=== PATIENT | female | born 1985 | race Caucasian/White ===

== ENCOUNTER 2017-05-20 15:24 | Emergency (ER) | END 2017-05-20 18:16 | disposition home or self-care (01) ==

== ENCOUNTER 2017-11-07 11:11 | Emergency (ER) | END 2017-11-07 13:48 | disposition home or self-care (01) ==

== ENCOUNTER 2018-04-04 18:32 | Emergency (ER) | payer MEDICAID ==
[~2018-04-04] VITALS: Ht 152.4 cm; Wt 65.2 kg
[~2018-04-04 18:32] MED LIST: ACET500C5 PO; BACI28.34 TOP; CEPH-443 PO; PREN1TAB79 PO
[2018-04-04 19:11] VITALS: Ht 152.4 cm; Wt 65.2 kg
--- NOTE | 2018-04-04 22:25 | ERD ---
ER Documentation Chief Complaint Chief Complaint DYSURIA, "VAGINAL INFLAMMATION" HPI 32-year-old female, previously healthy, presents to the emergency department, complaining of 2 days with vaginal discharge, grayish, associated with discomfort and vulvar irritation. She denies burning with urination. No fever, no chills, no abdominal pain. ROS All systems reviewed and are negative except as per history of present illness. Medications Home Meds Active Scripts Fluconazole* (Diflucan*) 150 Mg Tablet, 150 MG PO ONCE, #1 TAB Prov:MARILEE LOREDO MD 04/04/18 Nystatin-Triamcinolone* (Nystatin-Triamcinolone* Cream) 15 Gm Cream.gm., 1 APPLIC TOP BID for 7 Days, TUB Prov:MARILEE LOREDO MD 04/04/18 Metronidazole* (Metrogel* Vaginal) 0.75% -70 Gram Gel.w.appl, 1 APPFUL VAG HS for 7 Days, TUB Prov:MARILEE LOREDO MD 04/04/18 Bacitracin* (Bacitracin Zinc Oint*) 28.35 Gm Oint, 1 APPLIC TOP TID for 7 Days, TUB APPLY TO Prov:MARILEE LOREDO MD 11/07/17 Cephalexin* (Keflex*) 500 Mg Capsule, 500 MG PO TID for 7 Days, CAP Prov:MARILEE LOREDO MD 11/07/17 Vit W-Ca,Fe,FA(<1 mg) ( Vitamins) 1 Each Tablet, 1 EACH PO DAILY, #30 TAB Prov:BRYN DOAN 05/20/17 Acetaminophen* (Tylophen*) 500 Mg Capsule, 1 CAP PO Q6H PRN for PAIN AND OR ELEVATED TEMP, #20 CAP Prov:PASILABRYN JAFFE F 05/20/17 Allergies Allergies: Coded Allergies: No Known Allergy (Unverified , 04/04/18) PMhx/Soc Medical and Surgical Hx: pt denies Medical Hx History of Surgery: Yes (csection) Anesthesia Reaction: No Hx Neurological Disorder: No Hx Respiratory Disorders: No Hx Cardiac Disorders: No Hx Psychiatric Problems: No Hx Miscellaneous Medical Probl: No Hx Alcohol Use: No Hx Substance Use: No Hx Tobacco Use: No Smoking Status: Never smoker Physical Exam Vitals Vital Signs Date Temp Pulse Resp B/P (MAP) Pulse Ox O2 O2 Flow FiO2 Time Delivery Rate 04/04/18 76 16 111/70 99 19:11 (84) Physical Exam Const: No acute distress Head: Atraumatic Eyes: Normal Conjunctiva ENT: Normal External Ears, Nose and Mouth. Neck: Full range of motion. No meningismus. Resp: Clear to auscultation bilaterally Cardio: Regular rate and rhythm, no murmurs Abd: Soft, non tender, non distended. Normal bowel sounds : Marked vulvar erythema, greenish vaginal discharge, no cervical motion tenderness, no adnexal masses palpated. Skin: No petechiae or rashes Back: No midline or flank tenderness Ext: No cyanosis, or edema Neur: Awake and alert Psych: Normal Mood and Affect Results 24 hrs Laboratory Tests Test 04/04/18 22:36 04/04/18 23:36 Urine Test NEGATIVE Bedside Urine pH (LAB) 7.0 Bedside Urine Protein (LAB) Negative Bedside Urine Glucose (UA) Negative Bedside Urine Ketones (LAB) Negative Bedside Urine Blood Negative Bedside Urine Nitrite (LAB) Negative Bedside Urine Leukocyte Esterase (L Trace Procedures/MDM Vital signs stable. Differential diagnosis considered include UTI, bacterial vaginosis, yeast infection, HSV, STI. Low suspicion for pelvic inflammatory disease. During the ED course the patient remained stable, no new complaints. Clinical impression discussed with the patient who agrees with management. The patient is stable to be treated outpatient and will be discharged home with a Rx for metronidazole gel, some side effects of prescribed medications (headache, rash, nausea, vomiting, diarrhea, drowsiness, interactions with other medications) were reviewed. Follow up with the primary care provider in the next 48h has been recommended. If symptoms persist, worsen or new symptoms develop, then patient should return to the ED immediately. Instructions explained and given directly by me to the patient with acknowledgment and demonstrated understanding. Disclaimer: Inadvertent spelling and grammatical errors are likely due to EHR/dictation software use and do not reflect on the overall quality of patient care. Also, please note that the electronic time recorded on this note does not necessarily reflect the actual time of the patient encounter. Departure Diagnosis: Primary Impression: Vaginitis Condition: Stable Additional Instructions: Muchas devendra por [facility] para diaz servicio. Esperamos que en diaz visita a la douglas de emergencia diaz problema medico haya sido solucionado y que se sienta mucho mejor. Para estar seguros que diaz mejoria sigue en proceso, le pedimos el favor de hacer cameron unique de seguimiento medico con diaz doctor primario en los proximos 2-4 herrmann. Lleve con usted estos documentos y las medicinas recetadas. Si yara sintomas empeoran, NO SE ESPERE, por favor regrese a douglas de emergencia INMEDIATAMENTE. En ruiz que usted no tenga un mdico de atencin primaria: Llame al mdico o clnica comunitaria de referencia que aparece abajo [place] las horas de consultorio para hacer cameron unique para que le vean. CLINICAS: [facility] [phone] [facility] [phone] [facility] [phone] [facility] [phone] [facility] [phone] [address] [facility]. [phone] MARILEE DE LA CRUZ MD Apr 04, 2018 22:25
[2018-04-04] MEDS ORDERED: METR70GE15 VAG (23:50)
[2018-04-04] MEDS ORDERED: FLUC150T PO (23:50)
[2018-04-04] MEDS ORDERED: NYST15CR36 TOP (23:50)
== END 2018-04-05 00:03 | disposition home or self-care (01) ==
LOC: FTE 18:32
DX: N76.0 Acute vaginitis (principal)
CPT/HCPCS: 81003; 84703; Z7502; 99283

== ENCOUNTER 2018-06-30 13:09 | Emergency (ER) | payer MEDICAID ==
[~2018-06-30] VITALS: Wt 64.0 kg
[~2018-06-30 13:09] MED LIST changes: +FLUC150T PO; +METR70GE15 VAG; +NYST15CR36 TOP
[2018-06-30 13:16] VITALS: BP 107/58; PULSE 59; RESP 18
[2018-06-30] MEDS ORDERED: KETOROLAC 60 MG INJ IM STA (14:50)
[2018-06-30] MEDS ORDERED: IBUP-1542 PO (15:07)
--- NOTE | 2018-06-30 15:13 | ERD ---
ER Documentation Chief Complaint Chief Complaint headache after arguement at work with boss, recent stressors at work HPI 32-year-old female patient with no significant past medical history presents ED complaining of a headache that started for 1 month, worse when she is stressed and states that earlier today she got into an argument, verbal with her boss. Describes her headache as a pressure sensation and rates it a 8 out of 10. States that she has a lot of stressors at work. Denies any fever, neck stiffness, abdominal pain, chest pain, shortness of breath, cough, rhinorrhea. Denies any head or neck injuries. Denies any photophobia, photophobia. ROS All systems reviewed and are negative except as per history of present illness. Medications Home Meds Active Scripts Ibuprofen* (Motrin*) 600 Mg Tab, 600 MG PO Q6, #30 TAB Prov:RAY PRASAD PA-C 06/30/18 Fluconazole* (Diflucan*) 150 Mg Tablet, 150 MG PO ONCE, #1 TAB Prov:MARILEE LOREDO MD 04/04/18 Nystatin-Triamcinolone* (Nystatin-Triamcinolone* Cream) 15 Gm Cream.gm., 1 APPLIC TOP BID for 7 Days, TUB Prov:MARILEE LOREDO MD 04/04/18 Metronidazole* (Metrogel* Vaginal) 0.75% -70 Gram Gel.w.appl, 1 APPFUL VAG HS for 7 Days, TUB Prov:MARILEE LOREDO MD 04/04/18 Bacitracin* (Bacitracin Zinc Oint*) 28.35 Gm Oint, 1 APPLIC TOP TID for 7 Days, TUB APPLY TO Prov:MARILEE LOREDO MD 11/07/17 Cephalexin* (Keflex*) 500 Mg Capsule, 500 MG PO TID for 7 Days, CAP Prov:MARILEE LOREDO MD 11/07/17 Vit W-Ca,Fe,FA(<1 mg) ( Vitamins) 1 Each Tablet, 1 EACH PO DAILY, #30 TAB Prov:PASILABANLONGAR F 05/20/17 Acetaminophen* (Tylophen*) 500 Mg Capsule, 1 CAP PO Q6H PRN for PAIN AND OR ELEVATED TEMP, #20 CAP Prov:PASILABAN,KLAR F 05/20/17 Allergies Allergies: Coded Allergies: No Known Allergy (Unverified , 04/04/18) PMhx/Soc History of Surgery: Yes (csection) Anesthesia Reaction: No Hx Neurological Disorder: No Hx Respiratory Disorders: No Hx Cardiac Disorders: No Hx Psychiatric Problems: No Hx Miscellaneous Medical Probl: No Hx Alcohol Use: No Hx Substance Use: No Hx Tobacco Use: No FmHx Family History: No diabetes, No coronary disease Physical Exam Vitals Vital Signs Date Temp Pulse Resp B/P (MAP) Pulse Ox O2 O2 Flow FiO2 Time Delivery Rate 06/30/18 98.1 59 18 107/58 98 13:16 (74) Physical Exam Const: [id number], well-nourished. In no acute distress. Head: Atraumatic, normocephalic. No hematoma. No doyle sign. Eyes: Normal Conjunctiva without injection. No purulent discharge. PERRLA. EOMI ENT: Normal external ear. Ear canal without erythema. Tympanic membrane pearly capps without effusion or bulging. Nasal canal clear with normal turbinates. Moist oropharynx without tonsillar exudates. Non-erythematous pharynx. Uvula midline. No drooling. No trismus. Neck: No cervical midline tenderness. Full range of motion. No meningismus. No cervical lymphadenopathy. No JVD. Resp: Clear to auscultation bilaterally. No wheezing, rhonchi, rales, or crackles. No accessory muscle use. No retractions. Cardio: Regular rate and rhythm. No murmurs, rubs or gallops. Abd: Soft, non tender, non distended. Normal bowel sounds. No palpable masses. No rebound tenderness. No guarding. Negative McBurney's Point. Negative Prieto's Sign. Skin: Normal skin turgor. No petechiae or rashes Back: No midline tenderness. No CVA tenderness. Ext: No cyanosis, or edema. Distal pulses intact bilaterally. Neur: Awake and alert. Normal gait. Normal coordination. Cranial Nerves II- VII intact. Normal finger to nose. Muscle strength 5/5. Sensation intact. Psych: Normal Mood and Affect Results 24 hrs Laboratory Tests Test 06/30/18 15:02 POC Beta HCG, Qualitative NEGATIVE Current Medications Medications Dose Sig/Arvind Start Time Status Last (Trade) Ordered Route PRN Stop Time Admin Dose Reason Admin Ketorolac 60 mg ONCE STAT 06/30/18 DC Tromethamine IM 14:50 (Toradol) 06/30/18 14:51 Procedures/MDM 32-year-old female patient with no significant hospital history presents ED complaint of a headache that started after feeling stressed. Patient is afebrile and nontoxic-appearing. Urine negative. Toradol 60 mg IM with improvement of his pain. Patient likely has a tension headache secondary to stress. Low suspicion for headache, migraine, intracranial bleed, subarachnoid hemorrhage, TIA, stroke, subdural hematoma, epidural hematoma, seizures, meningitis, carotid dissection or other emergent conditions. Diagnosis: Headache Discharge medications: Ibuprofen Follow up with primary care physician in 1-2 days. Instructed patient to return to the ED sooner for any worsening symptoms. Patient's questions were answered. Patient is hemodynamically stable. Patient understood and agreed with discharge plan. Patient discharged stable. Disclaimer: Inadvertent spelling and grammatical errors are likely due to EHR/dictation software use and do not reflect on the overall quality of patient care. Also, please note that the electronic time recorded on this note does not necessarily reflect the actual time of the patient encounter. Departure Diagnosis: Primary Impression: Headache Headache type: unspecified Headache chronicity pattern: unspecified pattern Intractability: not intractable Qualified Codes: R51 - Headache Condition: Stable Patient Instructions: Stress Relief: Activities, Stress Relief: Relaxation, Stress Relief: A Positive Lifestyle, Stress Relief: Changing Your Response, Kay middleton, Unspecified Referrals: [facility] YOU HAVE RECEIVED A MEDICAL SCREENING EXAM AND THE RESULTS INDICATE THAT YOU DO NOT HAVE A CONDITION THAT REQUIRES URGENT TREATMENT IN THE EMERGENCY DEPARTMENT. FURTHER EVALUATION AND TREATMENT OF YOUR CONDITION CAN WAIT UNTIL YOU ARE SEEN IN YOUR DOCTORS OFFICE WITHIN THE NEXT 1-2 DAYS. IT IS YOUR RESPONSIBILITY TO MAKE AN APPOINTMENT FOR FOLOW-UP CARE. IF YOU HAVE A PRIMARY DOCTOR --you should call your primary doctor and schedule an appointment IF YOU DO NOT HAVE A PRIMARY DOCTOR YOU CAN CALL OUR PHYSICIAN REFERRAL HOTLINE AT IF YOU CAN NOT AFFORD TO SEE A PHYSICIAN YOU CAN CHOSE FROM THE FOLLOWING [facility] [address] [facility]. [facility] [address] [facility] [facility] [address] [facility]. [facility] [address] [facility]. [facility] [address] [facility]. [facility]. [address] [facility]. [facility] YOU HAVE RECEIVED A MEDICAL SCREENING EXAM AND THE RESULTS INDICATE THAT YOU DO NOT HAVE A CONDITION THAT REQUIRES URGENT TREATMENT IN THE EMERGENCY DEPARTMENT. FURTHER EVALUATION AND TREATMENT OF YOUR CONDITION CAN WAIT UNTIL YOU ARE SEEN IN YOUR DOCTORS OFFICE WITHIN THE NEXT 1-2 DAYS. IT IS YOUR RESPONSIBILITY TO MAKE AN APPOINTMENT FOR FOLOW-UP CARE. IF YOU HAVE A PRIMARY DOCTOR --you should call your primary doctor and schedule and appointment IF YOU DO NOT HAVE A PRIMARY DOCTOR YOU CAN CALL OUR PHYSICIAN REFERRAL HOTLINE AT . IF YOU CAN NOT AFFORD TO SEE A PHYSICIAN YOU CAN CHOSE FROM THE FOLLOWING [facility] INSTITUTIONS: [facility] [address] [place] [address] [facility] [address] [place], [place] [id number] [place] [address] [address] [place] [address] [facility] URGENT C[facility]/SPECIALTIES Additional Instructions: Llame al doctor MAANA y raven cameron EARLINE PARA DENTRO DE 2-3 T[place]OCO.Dgale a la secretaria que nosotros le instruimos hacer esta earline.Avise o llame si diaz condi aretha se empeora antes de la earline. Regresa aqui si peor o no mejor. RAY PRASAD PA-C Jun 30, 2018 15:13
== END 2018-06-30 15:30 | disposition home or self-care (01) ==
LOC: FTE 13:09
DX: R51 Headache (principal)
CPT/HCPCS: 81025; 96372; J1885; Z7502